=== PATIENT | female | born 1950 | race Caucasian/White ===

== ENCOUNTER 2019-12-18 10:56 | Observation (INO) | payer MEDICARE ==
[~2019-12-18] VITALS: Ht 170.2 cm; Wt 75.0 kg
[2019-12-18] MEDS ORDERED: OMEP40CA97 PO (11:32)
[2019-12-18 11:45] LABS: BASO % 0.4 % (0.0-1.0); EOS # 0.1 10^3/uL (0.0-0.5); EOS % 1.2 % (0.0-3.0); HEMATOCRIT 45.3 % (36.0-47.0); HEMOGLOBIN 15.4 g/dl (12.0-15.5); LYMPH # 1.5 10^3/uL (1.5-5.0); LYMPH % 21.4 % (24.0-44.0); MEAN CORPUSCULAR HEMOGLOBIN 31.8 pg (27.0-33.0); MEAN CORPUSCULAR VOLUME 93.6 fl (80.0-96.0); MONO # 0.7 10^3/uL (0.0-0.8); MONO % 10.8 % (0.0-5.0); NEUTROPHILS # 4.4 10^3/uL (1.5-8.5); NEUTROPHILS % 63.7 % (36.0-66.0); PLATELET COUNT, AUTOMATED 225 10^3/uL (150-450); RED BLOOD COUNT 4.84 10^6/uL (4.00-5.40); WHITE BLOOD COUNT 6.9 10^3/uL (4.0-10.0)
[2019-12-18 11:57] LABS: INR 0.98; PROTHROMBIN TIME 12.7 SECONDS (11.8-14.0)
[2019-12-18 11:58] LABS: PARTIAL THROMBOPLASTIN TIME 28.6 SECONDS (25.0-38.4)
[2019-12-18] MEDS ORDERED: MORPHINE 2 MG/ML 1ML VIAL (J2270) IV ONE (12:00)
[2019-12-18 12:12] LABS: BLOOD UREA NITROGEN 16 MG/DL (7-18); CALCIUM LEVEL 10.1 MG/DL (8.8-10.2); CARBON DIOXIDE LEVEL 21 MEQ/L (21-32); CHLORIDE LEVEL 107 MEQ/L (98-107); CREATININE FOR GFR 0.79 MG/DL (0.55-1.30); GLOMERULAR FILTRATION RATE > 60.0 (>39); GLUCOSE, FASTING 125 MG/DL (70-100); POTASSIUM SERUM 3.9 MEQ/L (3.5-5.1); SODIUM LEVEL 140 MEQ/L (136-145)
--- NOTE | 2019-12-18 12:41 | REP ---
PELVIS AND RIGHT HIP: AP view of the pelvis and AP and frogleg views of the right hip are performed. There is no acute fracture or dislocation. Mild degenerative changes are seen at the hip joints and sacroiliac joints bilaterally with mild joint space narrowing and subchondral sclerosis. IMPRESSION: Mild degenerative changes. No fracture or dislocation. Electronically Signed by Aba Estes MD 12/18/2019 12:53 P
--- NOTE | 2019-12-18 12:43 | REP ---
CHEST: Single view. There is no evidence of acute infiltrate. No pleural effusion is seen. The heart is normal in size. The mediastinal silhouette is unremarkable. The visualized osseous structures are intact. IMPRESSION: No acute pulmonary disease. Electronically Signed by Aba Estes MD 12/18/2019 12:53 P
[2019-12-18] MEDS ORDERED: KETOROLAC 30 MG/ML 1ML VIAL IV ONE (12:45)
[2019-12-18] MEDS ORDERED: CYCLOBENZAPRINE 5MG TABLET PO ONE (13:45)
--- NOTE | 2019-12-18 14:22 | REP ---
CT PELVIS WITHOUT CONTRAST: HISTORY: Injury in a fall. No occult hip fracture. Comparison is made with today's radiographs. FINDINGS: There is no evidence of occult fracture of the proximal femur on either side. There is minimal bilateral hip spurring. However, there are nondisplaced fractures of the inferior pubic ramus on the right as well as in the anterior aspect of the right acetabulum at the proximal end of the superior pubic ramus. There is a subtle 1 mm step-off of the anterior acetabular margin. Lastly, there is a nondisplaced buckle fracture of the anterior cortex of the upper sacrum on the right side. There is diffuse osteopenia. No other fracture is seen. No significant hematoma is appreciated. The patient is status post hysterectomy. Visualized bowel loops are unremarkable. IMPRESSION: Nondisplaced fractures of the right inferior pubic ramus, right anterior acetabular margin, and right superior sacrum. Diffuse osteopenia. Electronically Signed by Milton Martins MD 12/18/2019 07:34 P
[2019-12-18] MEDS ORDERED: ASCO500T PO (14:55)
[2019-12-18] MEDS ORDERED: CYAN100049 PO (14:55)
[2019-12-18] MEDS ORDERED: VAGI10TA PV (14:55)
[2019-12-18] MEDS ORDERED: VITAD1000T PO (14:55)
[2019-12-18] MEDS ORDERED: FAMO40TA3 PO (14:55)
[2019-12-18] MEDS ORDERED: LORA-674 PO (14:55)
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
[2019-12-18] MEDS ORDERED: MORPHINE 4 MG/ML 1ML VIAL/SYRINGE (J2270) IV PRN (15:00)
[2019-12-18] MEDS ORDERED: ACETAMINOPHEN TAB 650MG DOSE (2X325MG) PO PRN (15:00)
[2019-12-18] MEDS ORDERED: NORCO, ANEXSIA 5/325MG TABLET (HYDROcodone/ACETAMINOPHEN) PO PRN (15:00)
[2019-12-18 16:13] VITALS: BP 142/73
[2019-12-18] MEDS: IBUPROFEN 600MG TAB PO SCH ×2 (18:12→23:46)
[2019-12-18] MEDS: CYCLOBENZAPRINE 5MG TABLET PO SCH (20:40)
[2019-12-18 22:00] VITALS: BP 113/61
[2019-12-19 06:00] VITALS: BP 118/67
[2019-12-19] MEDS: IBUPROFEN 600MG TAB PO SCH ×2 (06:00→12:45)
[2019-12-19 06:22] LABS: HEMATOCRIT 39.8 % (36.0-47.0); MEAN CORPUSCULAR HEMOGLOBIN 31.6 pg (27.0-33.0); MEAN CORPUSCULAR HGB CONC 33.4 g/dl (32.0-36.5); MEAN CORPUSCULAR VOLUME 94.5 fl (80.0-96.0); PLATELET COUNT, AUTOMATED 175 10^3/uL (150-450); RED BLOOD COUNT 4.21 10^6/uL (4.00-5.40); WHITE BLOOD COUNT 6.2 10^3/uL (4.0-10.0)
[2019-12-19 06:27] LABS: HEMOGLOBIN 13.3 g/dl (12.0-15.5)
[2019-12-19 06:53] LABS: BLOOD UREA NITROGEN 14 MG/DL (7-18); CALCIUM LEVEL 8.5 MG/DL (8.8-10.2); CARBON DIOXIDE LEVEL 25 MEQ/L (21-32); CHLORIDE LEVEL 110 MEQ/L (98-107); CREATININE FOR GFR 0.63 MG/DL (0.55-1.30); GLOMERULAR FILTRATION RATE > 60.0 (>39); GLUCOSE, FASTING 98 MG/DL (70-100); POTASSIUM SERUM 4.5 MEQ/L (3.5-5.1); SODIUM LEVEL 142 MEQ/L (136-145)
[2019-12-19] MEDS ORDERED: ENOXAPARIN 40MG/0.4ML SYRINGE (J1650 PER 10MG) SC SCH (09:00)
[2019-12-19] MEDS: CYCLOBENZAPRINE 5MG TABLET PO SCH (09:09)
--- NOTE | 2019-12-19 11:04 | DS.PDOC ---
Discharge Summary General Date of Admission December 18, 2019 at 10:57 Date of Discharge 12/19/19 Discharge Summary PROCEDURES PERFORMED DURING STAY: None. ADMITTING DIAGNOSES: 1. R pelvic fx DISCHARGE DIAGNOSES: 1. nondisplaced fractures on the R inferior pubic ramus, R anterior acetabular margin, and R superior sacrum, pain control COMPLICATIONS/CHIEF COMPLAINT: Pelvic Fracture. HISTORY OF PRESENT ILLNESS/HOSPITAL COURSE: Patient is a 69 yoF with PMH of hx breast cancer in remission 20+ y ago, GERD, and recently dx lymphoma, osteopenia, otherwise healthy, presenting with nondisplaced fractures in the right inferior pubic ramus, right anterior acetabular margin, and right superior sacrum secondary to fall. Patient's pain was controlled on scheduled ibuprofen, and Flexeril, she did not require any additional dosing overnight. PT evaluation. Cleared patient with recommendations for rolling walker. Recommendations for weightbearing as tolerated, will prescribe a few days of scheduled ibuprofen and Flexeril, and transitioned to when necessary for pain control. Follow with PCP 1 week. If symptoms worsen, return to ED. All questions were answered. She does have underlying osteopenia, continue vitamin D supplements. No other changes in her medications. PHYSICAL EXAMINATION on DC: VITAL SIGNS: Please see below. GENERAL: No distress HEENT: Normocephalic, atraumatic, moist mucous membranes NECK: Supple CARDIOVASCULAR EXAMINATION: S1, S2 RESPIRATORY EXAMINATION:CTAB ABDOMINAL EXAMINATION: Soft, nontender, nondistended, positive bowel sounds EXTREMITIES: no edema, slighter tenderness/spasm on straight leg on R, neg CESAR, +FADIR SKIN: No rash NEUROLOGICAL EXAMINATION: Awake PSYCHIATRIC EXAMINATION: Calm and cooperative, appropriate affect, has capacity DISCHARGE MEDICATIONS: Please see below. DISCHARGE CONDITION: Stable. TIME SPENT ON DISCHARGE: 32 minutes Vital Signs/I&Os Vital Signs Date Time Temp Pulse Resp B/P (MAP) Pulse Ox O2 Delivery O2 Flow Rate FiO2 12/19/19 06:00 97.9 89 17 118/67 (84) 95 Room Air I&O- Last 24 Hours up to 6 AM 12/19/19 06:00 Intake Total 450 ml Output Total 600 ml Balance -150 ml Laboratory Data Labs 24H Laboratory Tests 2 12/18/19 11:27: Immature Granulocyte % (Auto) 2.5, Neutrophils (%) (Auto) 63.7, Lymphocytes (%) (Auto) 21.4L, Monocytes (%) (Auto) 10.8H, Eosinophils (%) (Auto) 1.2, Basophils (%) (Auto) 0.4, Neutrophils # (Auto) 4.4, Lymphocytes # (Auto) 1.5, Monocytes # (Auto) 0.7, Eosinophils # (Auto) 0.1, Basophils # (Auto) 0.0, Nucleated Red Blood Cells % (auto) 0.0, Prothrombin Time 12.7, Prothromb Time International R atio 0.98, Activated Partial Thromboplast Time 28.6, Anion Gap 12, Glomerular Filtration Rate > 60.0, Calcium Level 10.1 12/19/19 05:53: Nucleated Red Blood Cells % (auto) 0.0, Anion Gap 7L, Glomerular Filtration Rate > 60.0, Calcium Level 8.5#L CBC/BMP Laboratory Tests 12/18/19 11:27 12/19/19 05:53 Discharge Medications Scheduled Ascorbic Acid (Ascorbic Acid) 500 Mg Tablet, 1,000 MG PO DAILY, (Reported) Cholecalciferol (Vitamin D3) (Vitamin D3) 1,000 Unit Tablet, 1,000 UNITS PO DAILY, (Reported) Cyanocobalamin (Vitamin B-12) (Vitamin B-12) 1,000 Mcg Tablet, 1,000 MCG PO DAILY, (Reported) Estradiol (Vagifem) 10 Mcg Tablet, 10 MCG PV 2XW, (Reported) MON/FRI Famotidine (Famotidine) 40 Mg Tablet, 40 MG PO BID, (Reported) Loratadine (Loratadine) 10 Mg Tablet, 10 MG PO DAILY, (Reported) Allergies Coded Allergies: Penicillins (Verified Allergy, Unknown, rash, 12/18/19) cefaclor (Verified Allergy, Unknown, hives, 12/18/19) ADRIANO PEACE MD December 19, 2019 11:04
[2019-12-19] MEDS ORDERED: CYCL5TAB PO (11:09)
[2019-12-19] MEDS ORDERED: IBUP-1022 PO (11:09)
--- NOTE | 2019-12-19 22:02 | ECGEPIP ---
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
== END 2019-12-19 14:10 | disposition home or self-care (01) ==
LOC: M ED 10:56 → M ED INP 10:57 → ENRESERV 15:38 → M MS5PR 16:00
PROVIDERS: ADMIT Family Medicine; ATTEND Family Medicine
DX: S32.511A Fracture of superior rim of right pubis, initial encounter for closed fracture (principal); S32.414A Nondisplaced fracture of anterior wall of right acetabulum, initial encounter for closed fracture; V18.0XXA Pedal cycle driver injured in noncollision transport accident in nontraffic accident, initial encounter; Y93.55 Activity, bike riding; Y92.410 Unspecified street and highway as the place of occurrence of the external cause; K21.9 Gastro-esophageal reflux disease without esophagitis; Z85.3 Personal history of malignant neoplasm of breast; C81.90 Hodgkin lymphoma, unspecified, unspecified site; Z79.899 Other long term (current) drug therapy; Z88.0 Allergy status to penicillin; M85.80 Other specified disorders of bone density and structure, unspecified site; Y99.9 Unspecified external cause status
CPT/HCPCS: 36415; 71045; 72192; 73502; 80048; 85025; 85027; 85610; 85730; 86850; 86900; 86901; 93005; 93041; 94760; 96374; 96375; 97110; 97116; 97161; 97530; 99285; G0378; J1885; J2270